=== PATIENT | male | born 1975 | race Hispanic/Latino ===

== ENCOUNTER → 2020-03-21 11:34 | Outpatient (CLI) | payer OTHER, SELFPAY ==
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
== END ==
DX: M25.511 Pain in right shoulder (principal); S49.91XA Unspecified injury of right shoulder and upper arm, initial encounter; V89.2XXA Person injured in unspecified motor-vehicle accident, traffic, initial encounter
CPT/HCPCS: 73030

== ENCOUNTER → 2020-03-27 17:17 | Outpatient (CLI) | payer OTHER, SELFPAY ==
--- NOTE | 2020-03-27 | DI.MRI.S_ITS ---
PROCEDURE: MR SHOULDER RT W CON INDICATIONS: pain in right shoulder TECHNIQUE: After the administration of 12 mL of dilute intra-articular Gadolinium contrast, oblique coronal T1 and T2 spin echo with fat saturation, oblique sagittal T1 spin echo with and without fat saturation, oblique sagittal T2 fast spin echo with fat saturation, axial T1 spin echo with fat saturation through the shoulder. COMPARISON: None. FINDINGS: Image quality: Excellent. Rotator cuff: Supraspinatus tendinopathy and low-grade bursal surface fraying. Infraspinatus interstitial tearing and associated intrasubstance cystic change at the musculotendinous junction. There is infraspinatus tendinopathy with partial thickness articular and bursal sided tear. No definite full-thickness defect or retracted appearance is seen. The teres minor appears intact. Subscapularis tendon appears intact. No atrophy of the rotator cuff muscles although there is fatty infiltration of the supraspinatus and infraspinatus. Bones and bursae: No bone marrow contusions or fractures. Moderate hypertrophic acromioclavicular joint degeneration. Acromion demonstrates conventional anatomy, without an os acromiale. Trace subacromial-subdeltoid bursitis. Capsule and soft tissues: Labrum: Ill-defined fraying of the posterior segment of the labrum. Incidental sublabral foramen noted. Curvilinear T2 hyperintensity at the base of the superior labrum may represent superior sublabral sulcus (anatomic variant), rather than tear although recommend clinical correlation. Long head of the biceps tendon intact. The rotator interval appears normal, without fibrosis. Coracohumeral ligament intact. IMPRESSION: Supraspinatus tendinopathy with low-grade bursal surface fraying Infraspinatus tendinopathy and partial thickness articular and bursal sided tear. Additional interstitial tearing and intrasubstance cystic change as above. Trace subacromial-subdeltoid bursitis Ill-defined fraying/possible chronic degenerative tear involving the posterior labrum. Dictated by: Vern Ruiz M.D. on 03/28/2020 at 10:09 Approved by: Vern Ruiz M.D. on 03/28/2020 at 10:16
== END ==
PROVIDERS: Referring Provider Family Medicine; Visit Provider Family Medicine
DX: M25.511 Pain in right shoulder (principal); M19.011 Primary osteoarthritis, right shoulder; M75.111 Incomplete rotator cuff tear or rupture of right shoulder, not specified as traumatic
CPT/HCPCS: 73222